=== PATIENT | female | born 1975 | race Caucasian/White ===

== ENCOUNTER 2016-09-19 21:58 | Emergency (ER) | payer SELFPAY ==
--- NOTE | 2016-09-19 22:05 | PDOC ---
History of Present Illness - General History Source: Patient, Significant Other Exam Limitations: No Limitations - History of Present Illness Initial Comments: 09/19/16 22:57 The patient is a 41 year old, with significant past medical history, who presents today complaining of 1 day of suprapubic pain. The patient states that the pain began this morning and is sharp, non-radiating, and intermittent. She reports taking 3 ibuprofen this morning with mild relief. Her LMP was 08/22/16. Denies vaginal discharge/bleeding. Denies fever, chills, nausea, vomiting, constipation, diarrhea. Allergies: none reported Surgical Hx: <Ava Sandhu - Last Filed: 09/19/16 22:57> <Armani Stearns - Last Filed: 09/20/16 00:46> - General Chief Complaint: Vaginal Sxs Stated Complaint: ABD PAIN Time Seen by Provider: 09/19/16 22:04 Past History <Ava Sandhu - Last Filed: 09/19/16 22:57> - Past Medical History Asthma: No Cancer: No Cardiac Disorders: No Diabetes: No HTN: No Seizures: No Thyroid Disease: No - Immunization History Immunization Up to Date: Yes - Psycho/Social/Smoking Cessation Hx Anxiety: No Suicidal Ideation: No Smoking History: Never smoked Hx Alcohol Use: No Drug/Substance Use Hx: No Substance Use Type: None Hx Substance Use Treatment: No <Armani Stearns - Last Filed: 09/20/16 00:46> - Past Medical History Allergies/Adverse Reactions: Allergies Allergy/AdvReac Type Severity Reaction Status Date / Time No Known Allergies Allergy Verified 09/19/16 22:22 Review of Systems - Review of Systems Able to Perform ROS?: Yes Comments:: 09/19/16 22:57 CONSTITUTIONAL: No fever, no chills, no fatigue EYES: No visual changes ENT: No ear pain, no sore throat CARDIOVASCULAR: No chest pain, no palpitations RESPIRATORY: No cough, no SOB GI: +suprapubic pain. No nausea, no vomiting, no constipation, no diarrhea GENITOURINARY: No dysuria, no frequency, no hematuria MUSKULOSKELETAL: No backpain, no joint pain, no myalgias SKIN: No rash NEURO: No headache <Ava Sandhu - Last Filed: 09/19/16 22:57> *Physical Exam - Vital Signs Last Vital Signs Temp Pulse Resp BP Pulse Ox 97.7 F 76 14 126/67 99 09/19/16 22:22 09/19/16 22:22 09/19/16 22:22 09/19/16 22:22 09/19/16 22:22 - Physical Exam Comments: 09/19/16 22:58 CONSTITUTIONAL: Well-appearing; well-nourished; in no apparent distress HEAD: Normocephalic; atraumatic EYES: PERRL; EOM intact ENMT: External appears normal; normal oropharynx NECK: Supple; non-tender; no cervical lymphadenopathy CARD: Normal S1, S2; no murmurs, rubs, or gallops RESP: Normal chest excursion with respiration; breath sounds clear and equal bilaterally; no wheezes, rhonchi, or rales ABD: Mild to moderate suprapubic tenderness. Soft, non-distended; no palpable organomegaly, no palpable hernias EXT: Normal ROM in all four extremities; non-tender to palpation; distal pulses intact SKIN: Warm, dry, no rash NEURO: No focal neurological deficiencies. <Ava Sandhu - Last Filed: 09/19/16 22:57> ED Treatment Course - LABORATORY CBC & Chemistry Diagram: 09/19/16 22:46 09/19/16 22:46 <Armani Stearns - Last Filed: 09/20/16 00:46> Medical Decision Making - Medical Decision Making 09/20/16 00:13 Patient is a 41-year-old female who presents with atraumatic suprapubic abdominal pain that started earlier in the day that is not effectively controlled by by mouth ibuprofen taken earlier. In the ER, patient is awake and alert, with mild to moderate suprapubic abdominal discomfort on initial evaluation, with no tenderness at the McBurney's point and a negative Burger's sign. Patient is UCG negative. CBC/CMP/UA within normal limit. Patient had received IV fluids and IV Toradol with significant improvement in level of her discomfort. Patient tolerated by mouth. On repeat exam, patient complains of minimal suprapubic discomfort only. I do not suspect appendicitis noted I suspect acute cholecystitis at this time. There is no evidence of colitis. Will discharge with PMD follow-up. <Armani Stearns - Last Filed: 09/20/16 00:46> *DC/Admit/Observation/Transfer - Attestations Scribe Attestion: 09/19/16 22:58 Documentation prepared by JULY Ricardo, acting as medical genetics director for Armani Stearns MD. <Ava Sandhu - Last Filed: 09/19/16 22:57> - Attestations Physician Attestion: 09/20/16 00:13 The documentation was prepared by the scribe under my direct supervision. I have reviewed the documentation which correctly represents the findings, medical decision-making and critical action taken by me. <Armani Stearns - Last Filed: 09/20/16 00:46> Diagnosis at time of Disposition: Abdominal pain Qualifiers: Abdominal location: lower abdomen, unspecified Qualified Code(s): R10.30 - Lower abdominal pain, unspecified - Discharge Dispostion Disposition: HOME Condition at time of disposition: Stable - Referrals Referrals: wildlife manager, as needed [Other] - Patient Instructions Printed Discharge Instructions: DI for Abdominal Pain-Adult Additional Instructions: Return immediately if you pain localizes to the right lower side, you developed fever, physicians assistant vomiting.
[2016-09-19 22:29] VITALS: BP 126/67; PULSE 76; TEMP 97.7; BMI 25.6
[2016-09-19] MEDS ORDERED: SODIUM CHLORIDE 1,000 ML IV STA (22:57)
[2016-09-19] MEDS ORDERED: KETOROLAC TROMETHAMINE 30 MG/1 ML VIAL IVPUSH ONE (22:57)
[2016-09-19] MEDS ORDERED: KETOROLAC TROMETHAMINE 30 MG/1 ML VIAL ONE (22:59)
[2016-09-19 23:11] LABS: BASOPHIL 0.3 % (0-2.0); MCH 26.6 pg (25.7-33.7); MCHC 32.9 g/dl (32.0-36.0); MEAN CELL VOLUME 80.9 fl (80-96); MEAN PLT VOLUME 9.8 fl (7.5-11.1); NEUTROPHILS 88.9 % (42.8-82.8); PLATELET COUNT 189 K/MM3 (134-434); RDW 15.2 % (11.6-15.6); WHITE BLOOD COUNT 10.6 K/mm3 (4.0-10.0)
[2016-09-19 23:34] LABS: ALBUMIN 3.8 g/dl (3.4-5.0); ALK PHOS 96 U/L (45-117); ANION GAP 9 (8-16); BILIRUBIN,TOTAL 0.4 mg/dL (0.2-1.0); CALCIUM 8.5 mg/dL (8.5-10.1); CO2 26 mmol/L (21-32); CREATININE 0.6 mg/dL (0.55-1.02); GLUCOSE,RANDOM 119 mg/dL (74-106); SGOT/AST 13 U/L (15-37); SGPT/ALT 17 U/L (12-78); TOT PROT 7.5 g/dl (6.4-8.2)
[2016-09-19 23:46] LABS: URINE APPEARANCE CLEAR; URINE BILIRUBIN NEGATIVE (NEGATIVE); URINE BLOOD NEGATIVE (NEGATIVE); URINE COLOR COLORLESS; URINE GLUCOSE (UA) NEGATIVE (NEGATIVE); URINE KETONE 1+ (NEGATIVE); URINE LEUK ESTERASE NEGATIVE (NEGATIVE); URINE NITRITE NEGATIVE (NEGATIVE); URINE PROTEIN NEGATIVE (NEGATIVE); URINE UROBILINOGEN NEGATIVE E.U./dl (0.2-1.0)
[2016-09-20] MEDS ORDERED: traMADol HCL 50 MG TABLET PO ONE (01:37)
[2016-09-20] MEDS ORDERED: traMADol HCL 50 MG TABLET ONE (02:02)
== END 2016-09-20 02:00 | disposition home or self-care (01) ==
LOC: JER 21:58
PROC: 3E0333Z Introduction of Anti-inflammatory into Peripheral Vein, Percutaneous Approach (ICD-10-PCS; principal; 2016-09-19)
PROC: 3E0337Z Introduction of Electrolytic and Water Balance Substance into Peripheral Vein, Percutaneous Approach (ICD-10-PCS; 2016-09-19)
DX: R10.30 Lower abdominal pain, unspecified (principal)
CPT/HCPCS: 36415; 80053; 81003; 84703; 85025; 87086; 99283-25

== ENCOUNTER 2016-09-21 01:36 | Inpatient (IN) | payer OTHER ==
[2016-09-21] MEDS ORDERED: KETOROLAC TROMETHAMINE 30 MG/1 ML VIAL ONE (02:19)
[2016-09-21] MEDS ORDERED: SODIUM CHLORIDE 1,000 ML IV STA (02:23)
[2016-09-21] MEDS ORDERED: KETOROLAC TROMETHAMINE 30 MG/1 ML VIAL IVPUSH ONE (02:23)
--- NOTE | 2016-09-21 02:24 | PDOC ---
History of Present Illness - General History Source: Patient Exam Limitations: No Limitations - History of Present Illness Initial Comments: 09/21/16 02:30 The patient is a 41 year old female with no significant past medical history who presents to the ED with persistent suprapubic pain. Patient was seen in the ER yesterday for 1 day of suprapubic pain, where she was treated and discharged. She returns today for persistent and increasing suprapubic pain and sudden onset of associated nausea and nonbloody vomiting that began today. She denies fever, chills, diaphoresis, or diarrhea. She denies vaginal bleeding/ discharge. The patient denies cough, SOB, chest pain, and palpitations. The patient denies dysuria, hematuria, urgency, and frequency. Allergies: NKDA Social History: No alcohol, tobacco, or drug use reported. Past Surgical History: PCP: None reported <Brynn Montague - Last Filed: 09/21/16 04:10> <Man Fry - Last Filed: 09/21/16 04:27> - General Chief Complaint: Pain, Acute Stated Complaint: ABD PAIN Time Seen by Provider: 09/21/16 02:12 Past History <Brynn Montague - Last Filed: 09/21/16 04:10> - Past Medical History Asthma: No Cancer: No Cardiac Disorders: No Diabetes: No HTN: No Seizures: No Thyroid Disease: No Other medical history: denies - Immunization History Immunization Up to Date: Yes - Psycho/Social/Smoking Cessation Hx Anxiety: No Suicidal Ideation: No Smoking History: Never smoked Have you smoked in the past 12 months: No Hx Alcohol Use: No Drug/Substance Use Hx: No Substance Use Type: None Hx Substance Use Treatment: No <Man Fyr - Last Filed: 09/21/16 04:27> - Past Medical History Allergies/Adverse Reactions: Allergies Allergy/AdvReac Type Severity Reaction Status Date / Time No Known Allergies Allergy Verified 09/21/16 01:46 Home Medications: Ambulatory Orders NK [No Known Home Medication] 09/21/16 Review of Systems - Review of Systems Able to Perform ROS?: Yes Comments:: 09/21/16 02:30 +suprapubic pain, nausea, vomiting Absent: fever, chills, diaphoresis, cough, SOB, chest pain, diarrhea, vaginal bleeding/discharge, dysuria, hematuria, urgency, and frequency. <Brynn Montague - Last Filed: 09/21/16 04:10> *Physical Exam - Vital Signs Last Vital Signs Temp Pulse Resp BP Pulse Ox 98 F 75 18 127/76 97 09/21/16 01:46 09/21/16 01:46 09/21/16 01:46 09/21/16 01:46 09/21/16 01:46 <Brynn Montague - Last Filed: 09/21/16 04:10> - Vital Signs Last Vital Signs Temp Pulse Resp BP Pulse Ox 98 F 75 18 127/76 97 09/21/16 01:46 09/21/16 01:46 09/21/16 01:46 09/21/16 01:46 09/21/16 01:46 - Physical Exam General Appearance: Yes: Nourished, Appropriately Dressed, Mild Distress HEENT: positive: Normal ENT Inspection Respiratory/Chest: positive: Lungs Clear, Normal Breath Sounds. negative: Chest Tender, Respiratory Distress Cardiovascular: positive: Regular Rhythm, Regular Rate Gastrointestinal/Abdominal: positive: Normal Bowel Sounds, Tender (SUPRAPUBIC AREA. NO MASSES BUT NO DEEP TENDERNESS. ERYTHEMA MID LINE LIKELY 2/2 HOT COMPRESSESS USED BY PT. ), Soft Integumentary: positive: Normal Color, Erythema (SUPRAPUBIC) Neurologic: positive: Fully Oriented, Alert, Normal Mood/Affect, Normal Response , Motor Strength 5/5 <Man Fry - Last Filed: 09/21/16 04:27> ED Treatment Course - LABORATORY CBC & Chemistry Diagram: 09/21/16 02:26 09/21/16 02:26 - RADIOLOGY Radiograph Interpretation: 09/21/16 04:11 EXAM: CT abdomen and pelvis without contrast Reviewed by Imaging environmental field team member: FINDINGS: Lung bases are clear. The visualized cardiac chambers are normal size and configuration. Normal unenhanced liver, gallbladder, pancreas, spleen, adrenal glands and kidneys. There is a high- grade small bowel obstruction with small bowel dilated to 5 mm just proximal to any pelvic anastomosis which appears to represent the transition point and from anastomotic stricture. No abscess or free air. A rectal anastomosis is also noted.. There is no aortic aneurysm. There is no significant retroperitoneal lymphadenopathy. The appendix is normal. The uterus and adnexal structures are normal. Urinary bladder is unremarkable. There is no pelvic free fluid. No discrete pelvic lymphadenopathy is identified. IMPRESSION: High-grade small bowel obstruction with mid pelvic transition point secondary to anastomotic stricture, without abscess or free air. - Medications Given in the ED: ED Medications Discontinued Medications Generic Name Dose Route Start Last Admin Trade Name Freq PRN Reason Stop Dose Admin Ketorolac Tromethamine 30 mg 09/21/16 02:23 09/21/16 02:28 Toradol Injection - IVPUSH 09/21/16 02:24 30 mg ONCE ONE Administration <Brynn Montague - Last Filed: 09/21/16 04:10> - LABORATORY CBC & Chemistry Diagram: 09/21/16 02:26 09/21/16 02:26 <Man Fry - Last Filed: 09/21/16 04:27> Progress Note - Progress Note Progress Note: RETUNRNING W/ SUPRAPUBIC ABD PAIN SUGGESTIVE OF ABD WALL PAIN (HERNIA?) CT ABD <Man Fry - Last Filed: 09/21/16 04:27> *DC/Admit/Observation/Transfer - Attestations Scribe Attestion: 09/21/16 02:30 Documentation prepared by Brynn Montague, acting as medical lead for Man Fry MD <Brynn Montague - Last Filed: 09/21/16 04:10> - Discharge Dispostion Admit: Yes <Man Fry - Last Filed: 09/21/16 04:27> Diagnosis at time of Disposition: Small bowel obstruction - Discharge Dispostion Condition at time of disposition: Stable
[2016-09-21 02:37] LABS: BASOPHIL 0.3 % (0-2.0); EOSINOPHIL 0.2 % (0-4.5); MCH 26.4 pg (25.7-33.7); MCHC 32.6 g/dl (32.0-36.0); MEAN PLT VOLUME 9.9 fl (7.5-11.1); NEUTROPHILS 81.7 % (42.8-82.8); PLATELET COUNT 211 K/MM3 (134-434); RDW 15.4 % (11.6-15.6); WHITE BLOOD COUNT 13.1 K/mm3 (4.0-10.0)
[2016-09-21 02:57] LABS: CALCIUM 8.8 mg/dL (8.5-10.1); CREATININE 0.7 mg/dL (0.55-1.02)
[2016-09-21] MEDS ORDERED: morphine CARPU-JECT 2 MG/1 ML DISP.SYRIN ONE (04:28)
[2016-09-21] MEDS ORDERED: morphine CARPU-JECT 2 MG/1 ML DISP.SYRIN IVPUSH ONE (04:39)
[2016-09-21] MEDS ORDERED: ONDANSETRON 4 MG/2 ML VIAL IVPB PRN (05:25)
[2016-09-21] MEDS ORDERED: morphine CARPU-JECT 2 MG/1 ML DISP.SYRIN IVPUSH PRN (05:25)
--- NOTE | 2016-09-21 05:41 | HP ---
Addendum entered and electronically signed by Christy Adams PA 09/21/16 07: 08: Surgical history clarfied. Pt. had a benign ovarian cystectomy, not an oopherectomy Original Note: CHIEF COMPLAINT: Vomiting/abdominal pain PCP: None HISTORY OF PRESENT ILLNESS: Pt. is a 41 y/o female with no significant PMH who presented to the ED with nausea, vomiting, and abdominal pain. Pt. states that her symptoms began two days ago. She states that she vomited five times over the past two days. She points to her umbilicus when asked where the pain is. Nothing makes her pain better or worse. Her symptoms progressively got worse over the past two days so she came to the ED for evaluation. ER course was notable for: (1) SBO noted on CT (2) NG tube placement (3) WBC of 13.1, afebrile Recent Travel: Denies PAST MEDICAL HISTORY: None PAST SURGICAL HISTORY: Oopherectomy Social History: Smoking: Former smoker. 3-4 cigarettes/week x 4years. Alcohol: Denies Drugs: Denies Family History: Mother: Alive, HTN Father: Alive, HTN Brother 1: Alive, cholecystectomy Brother 2: Alive, cholecystectomy Allergies No Known Allergies Allergy (Verified 09/21/16 01:46) HOME MEDICATIONS: 3 Medication Instructions Recorded NK [No Known Home Medication] 09/21/16 REVIEW OF SYSTEMS CONSTITUTIONAL: Absent: fever, chills, diaphoresis, generalized weakness, malaise, loss of appetite, weight change HEENT: Absent: rhinorrhea, nasal congestion, throat pain, throat swelling, difficulty swallowing, mouth swelling, ear pain, eye pain, visual changes CARDIOVASCULAR: Absent: chest pain, syncope, palpitations, irregular heart rate, lightheadedness , peripheral edema RESPIRATORY: Absent: cough, shortness of breath, dyspnea with exertion, orthopnea, wheezing, stridor, hemoptysis GASTROINTESTINAL: Present: Abdominal pain, nausea, vomiting. Absent: abdominal pain, abdominal distension, nausea, vomiting, diarrhea, constipation, melena, hematochezia GENITOURINARY: Absent: dysuria, frequency, urgency, hesitancy, hematuria, flank pain, genital pain MUSCULOSKELETAL: Absent: myalgia, arthralgia, joint swelling, back pain, neck pain SKIN: Absent: rash, itching, pallor HEMATOLOGIC/IMMUNOLOGIC: Absent: easy bleeding, easy bruising, lymphadenopathy, frequent infections ENDOCRINE: Absent: unexplained weight gain, unexplained weight loss, heat intolerance, cold intolerance NEUROLOGIC: Absent: headache, focal weakness or paresthesias, dizziness, unsteady gait, seizure, mental status changes, bladder or bowel incontinence PSYCHIATRIC: Absent: anxiety, depression, suicidal or homicidal ideation, hallucinations. PHYSICAL EXAMINATION Vital Signs - 24 hr 3 09/21/16 09/21/16 01:46 04:46 Temperature 98 F Pulse Rate 75 Pulse Rate [ 76 Left] Respiratory 18 18 Rate Blood Pressure 127/76 Blood Pressure 120/59 [Right Arm] O2 Sat by Pulse 97 100 Oximetry (%) GENERAL: Awake, alert, and fully oriented to person, place and time, in mild distress. HEAD: Normal with no signs of trauma. EYES: Pupils equal, round and reactive to light, extraocular movements intact, sclera anicteric, conjunctiva clear. No lid lag. EARS, NOSE, THROAT: Ears normal, nares patent, oropharynx clear without exudates. Moist mucous membranes. NECK: Normal range of motion, supple without lymphadenopathy, JVD, or masses. LUNGS: Breath sounds equal, clear to auscultation bilaterally. No wheezes, and no crackles. No accessory muscle use. HEART: Regular rate and rhythm, normal S1 and S2 without murmur, rub or gallop. ABDOMEN: TTP over the umbilical and suprapubic region. Soft, not distended, hyper tympanic bowel sounds, no guarding, no rebound, no masses. No hepatomegaly or splenomegaly. MUSCULOSKELETAL: Normal range of motion at all joints. No bony deformities or tenderness. No CVA tenderness. UPPER EXTREMITIES: 2+ pulses, warm, well-perfused. No cyanosis. No clubbing. No peripheral edema. LOWER EXTREMITIES: 2+ pulses, warm, well-perfused. No calf tenderness. No peripheral edema. NEUROLOGICAL: Cranial nerves II-XII intact. Normal speech. Normal gait. PSYCHIATRIC: Cooperative. Good eye contact. Appropriate mood and affect. SKIN: Warm, dry, normal turgor, no rashes or lesions noted, normal capillary refill. Laboratory Results - last 24 hr 3 09/21/16 09/21/16 02:26 02:26 WBC 13.1 H RBC 4.61 Hgb 12.2 Hct 37.4 MCV 81.0 MCHC 32.6 RDW 15.4 Plt Count 211 MPV 9.9 Neutrophils % 81.7 Lymphocytes % 11.9 D Monocytes % 5.9 D Eosinophils % 0.2 D Basophils % 0.3 Sodium 141 Potassium 3.7 Chloride 103 Carbon Dioxide 25 Anion Gap 13 BUN 8 D Creatinine 0.7 Random Glucose 104 Calcium 8.8 Imaging: CT Scan: Lung bases are clear. The visualized cardiac chambers are normal size and configuration. Normal unenhanced liver, gallbladder, pancreas, spleen, adrenal glands and kidneys. There is a high-grade small bowel obstruction with small bowel dilated to 5 mm just proximal to any pelvic anastomosis which appears to represent the transition point and from anastomotic stricture. No abscess or free air. A rectal anastomosis is also noted.. There is no aortic aneurysm. There is no significant retroperitoneal lymphadenopathy. The appendix is normal. The uterus and adnexal structures are normal. Urinary bladder is unremarkable. There is no pelvic free fluid. No discrete pelvic lymphadenopathy is identified. IMPRESSION: High-grade small bowel obstruction with mid pelvic transition point secondary to anastomotic stricture, without abscess or free air. ASSESSMENT/PLAN: Pt. is a 41 y/o female with no PMH who is admitted for a SBO. Problem List - Problem (1) SBO (small bowel obstruction) Assessment/Plan: - NPO. - Maintain NG tube placement with intermittent low wall suction - Received call from [facility] [employer]. NG tube just above the GE junction. Advanced 5cm - Leukocytosis; most likely reactive. Observe off antibiotics unless pt. becomes febrile. - CT scan shows surgical clips on the intestine; however, pt does not report previous bowel surgery. - Surgery Consult in the morning. - GI prophylaxis, protonix 40mg IV daily Code(s): K56.69 - OTHER INTESTINAL OBSTRUCTION (2) DVT prophylaxis Assessment/Plan: Moderate Risk; Heparin 5,000 TID Code(s): [id number] - Visit type - Emergency Visit Emergency Visit: Yes ED Registration Date: 09/21/16 Care time: The patient presented to the Emergency Department on the above date and was hospitalized for further evaluation of their emergent condition. - New Patient This patient is new to me today: Yes Date on this admission: 09/21/16 - Critical Care Critical Care patient: No
[2016-09-21] MEDS: HEPARIN NA (PORCINE) 5,000 UNITS/ML 1ML VIAL SQ SCH ×3 (06:36→23:33)
[2016-09-21 08:07] LABS: BASOPHIL 0.2 % (0-2.0); EOSINOPHIL 0.6 % (0-4.5); MCH 26.8 pg (25.7-33.7); MEAN PLT VOLUME 9.6 fl (7.5-11.1); PLATELET COUNT 188 K/MM3 (134-434); RDW 15.7 % (11.6-15.6); WHITE BLOOD COUNT 10.8 K/mm3 (4.0-10.0)
[2016-09-21 09:15] LABS: ALBUMIN 3.3 g/dl (3.4-5.0); ALK PHOS 72 U/L (45-117); ANION GAP 8 (8-16); BILIRUBIN,TOTAL 0.4 mg/dL (0.2-1.0); CO2 24 mmol/L (21-32); CREATININE 0.6 mg/dL (0.55-1.02); GLUCOSE,RANDOM 86 mg/dL (74-106); MAGNESIUM 2.1 mg/dL (1.8-2.4); PHOSPHOROUS 2.8 mg/dL (2.5-4.9); SGOT/AST 9 U/L (15-37); SGPT/ALT 14 U/L (12-78); TOT PROT 6.3 g/dl (6.4-8.2)
[2016-09-21] MEDS ORDERED: morphine CARPU-JECT 2 MG/1 ML DISP.SYRIN IVPB ONE (09:30)
[2016-09-21] MEDS: PANTOPRAZOLE SODIUM 100 ML IVPB SCH (09:37)
[2016-09-21 11:15] VITALS: BMI 28.8
[2016-09-21] MEDS ORDERED: LORAZEPAM CARPU-JECT 2 MG/ML DISP.SYRIN IVPB ONE (12:18)
--- NOTE | 2016-09-21 12:26 | PN ---
Physical Exam: SUBJECTIVE: Patient seen and examined. Patient was verbalizing pain on her lower abdomen. States pain is not relieved with current morphine dose. Also very anxious on exam. Denies chest pain, shortness of breath. OBJECTIVE: Anxious, abdominal pain not relieved NGT with minimal output Will give one time dose of ativan 0.5mg x 1 and increase morphine to 4mg q4 and monitor She does have + bowel sounds Vital Signs Period Temp Pulse Resp BP Sys/Gomez Pulse Ox Last 24 Hr 98.4 F-99.3 F 66-76 16-20 117-127/59-65 100 GENERAL: The patient is awake, alert, and fully oriented, expressing abdominal pain, anxious HEAD: Normal with no signs of trauma. EYES: PERRL, extraocular movements intact, sclera anicteric, conjunctiva clear. No ptosis. ENT: Ears normal, nares patent, oropharynx clear without exudates, moist mucous membranes. NECK: Trachea midline, full range of motion, supple. LUNGS: Breath sounds equal, clear to auscultation bilaterally, no wheezes, no crackles, no accessory muscle use. HEART: Regular rate and rhythm, S1, S2 without murmur, rub or gallop. ABDOMEN: +pain on light palpation of suprapubic region, mildly distended abdomen , + bowel sounds EXTREMITIES: 2+ pulses, warm, well-perfused, no edema. NEUROLOGICAL: Normal speech, gait not observed. PSYCH: Normal mood, normal affect. SKIN: Warm, dry, normal turgor, no rashes or lesions noted Laboratory Results - last 24 hr 09/21/16 09/21/16 07:30 07:30 WBC 10.8 H RBC 4.08 Hgb 10.9 D Hct 33.1 MCV 81.0 MCHC 33.0 RDW 15.7 H Plt Count 188 MPV 9.6 Neutrophils % 68.0 Lymphocytes % 22.5 D Monocytes % 8.7 Eosinophils % 0.6 D Basophils % 0.2 Sodium 141 Potassium 3.6 Chloride 109 H Carbon Dioxide 24 Anion Gap 8 BUN 8 Creatinine 0.6 Creat Clearance w eGFR > 60 Random Glucose 86 Calcium 8.0 L Phosphorus 2.8 Magnesium 2.1 Total Bilirubin 0.4 AST 9 L D ALT 14 Alkaline Phosphatase 72 D Total Protein 6.3 L Albumin 3.3 L Active Medications Generic Name Dose Route Start Last Admin Trade Name Freq PRN Reason Stop Dose Admin Heparin Sodium (Porcine) 5,000 unit 09/21/16 06:00 09/21/16 06:36 Heparin - SQ 5,000 unit TID MALCOLM Administration Pantoprazole Sodium 100 mls @ 200 mls/hr 09/21/16 10:00 09/21/16 09:37 Protonix 40mg Ivpb (Pre-Docked) IVPB 200 mls/hr DAILY MALCOLM Administration Dextrose/Sodium Chloride 1,000 mls @ 100 mls/hr 09/21/16 12:00 D5-Ns - IV ASDIR MALCOLM Lidocaine HCl 15 ml 09/21/16 05:22 Xylocaine 2% Viscous Oral - MM Q6HPO PRN PAIN Lorazepam 0.5 mg 09/21/16 12:18 Ativan Injection - IVPB 09/21/16 12:19 ONCE ONE Morphine Sulfate 4 mg 09/21/16 12:15 Morphine Injection - IVPB Q3H PRN PAIN Ondansetron HCl 4 mg 09/21/16 05:25 Zofran Injection IVPB Q6H PRN NAUSEA ASSESSMENT/PLAN: Patient is a 41 year old female with a past medical history of c section, benign ovarian cystectomy and small bowel perforation during with extensive small bowel adhesions between the anterior abdominal wall and the uterus. She is noted on the cat scan to have surgical clippings. She presented to the ED on 09/21/2016 with complaints of nausea, vomiting and abdominal pain. States her symptoms began 2 days prior and that she has had multiple episodes of vomiting over last few days. She states her pain is below her umbilicus on both lower quadrants. On admission an SBO was noted on abdomen/pelvis CT and an NGT was placed to low intermittent suction. Her WBC were 13.1 on admission. GI: Small Bowel Obstruction - acute Assessment/Plan: NPO with NGT with minimal output Her abdomen is mildly distended but does have + bowel sounds Abdominal/Pelvis CT 09/21/2016 - high grade partial SBO in RLQ @ site of SB anastomosis there are surgical clips on the intestines Surgery consulted On Protonix 40mg daily Morphine for pain Zofran for nausea IVF of D5 NS @100 while NPO Leukocytosis - acute / improving Assessment/Plan: trend for now monitor F.E.N. Fluids: D5 NS @ 100cc/hr Electrolytes: within normal limits Nutrition: NPO, has NGT low intermittent suction Prophylaxis: GI: protonix daily DVT: Heparin TID Visit type - Emergency Visit Emergency Visit: Yes ED Registration Date: 09/21/16 Care time: The patient presented to the Emergency Department on the above date and was hospitalized for further evaluation of their emergent condition. - New Patient This patient is new to me today: Yes Date on this admission: 09/21/16 - Critical Care Critical Care patient: No - Discharge Referral Referred to [facility] No
[2016-09-21] MEDS: morphine CARPU-JECT 4 MG/1 ML DISP.SYRIN IVPB PRN ×4 (12:30→23:55)
[2016-09-21] MEDS: DEXTROSE 5%-NORMAL SALINE 1,000 ML IV SCH (12:57)
[2016-09-21] MEDS ORDERED: LORAZEPAM CARPU-JECT 2 MG/ML DISP.SYRIN IVPUSH PRN (15:00)
--- NOTE | 2016-09-21 15:37 | CONSULT ---
Consult Consult Specialty:: Surgery Referred by:: Damaris Trejo Reason for Consultation:: Abdominal pain, intestinal obstruction. - History of Present Illness History of Present Illness: C/O abdominal pain for the last 2 days, with vomiting. She came to the Er yesterday as pain was not relieved. Her last bowel movement was yesterday. She feels better after admission. 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 History of Recent Travel: No Home Medications - Allergies Allergies/Adverse Reactions: Allergies Allergy/AdvReac Type Severity Reaction Status Date / Time No Known Allergies Allergy Verified 09/21/16 01:46 - Home Medications Home Medications: Ambulatory Orders NK [No Known Home Medication] 09/21/16 Family Disease History - Family Disease History Family Disease History: Heart Disease: Father Physical Exam Vital Signs: Vital Signs Temperature 99.5 F 09/21/16 14:14 Pulse Rate 67 09/21/16 14:14 Respiratory Rate 16 09/21/16 14:14 Blood Pressure 128/73 09/21/16 14:14 O2 Sat by Pulse Oximetry (%) 100 09/21/16 04:46 Gastrointestinal: Yes: Soft (Mildly tender in right lower quadrant of abdomen. No incisional hernia.) Labs: CBC, BMP 09/21/16 07:30 09/21/16 07:30 Imaging - Results X-ray: Report Reviewed (Distal intestinal obstruction.), Image Reviewed Cat Scan: Report Reviewed, Image Reviewed Problem List - Problems (1) Abdominal pain Code(s): R10.9 - UNSPECIFIED ABDOMINAL PAIN Qualifiers: Abdominal location: lower abdomen, unspecified Qualified Code(s): R10.30 - Lower abdominal pain, unspecified (2) Intestinal obstruction due to adhesions Code(s): K56.5 - INTESTINAL ADHESIONS W OBST (POSTPROCEDURAL) (POSTINFECTION) Assessment/Plan Hydration , IV fluids, Nasogastric aspiration , Monitor abdominal pain , WBC , abdominal findings, Surgery if not relieved with nasogastric aspiration, and IV fluids.
[2016-09-22] MEDS: DEXTROSE 5%-NORMAL SALINE 1,000 ML IV SCH (03:10)
[2016-09-22] MEDS: morphine CARPU-JECT 4 MG/1 ML DISP.SYRIN IVPB PRN ×2 (06:25→18:51)
[2016-09-22] MEDS: HEPARIN NA (PORCINE) 5,000 UNITS/ML 1ML VIAL SQ SCH ×3 (06:26→21:52)
[2016-09-22 07:27] LABS: BASOPHIL 0.2 % (0-2.0); EOSINOPHIL 0.3 % (0-4.5); MCH 26.6 pg (25.7-33.7); MCHC 32.4 g/dl (32.0-36.0); MEAN CELL VOLUME 82.2 fl (80-96); MEAN PLT VOLUME 9.6 fl (7.5-11.1); PLATELET COUNT 181 K/MM3 (134-434); RDW 15.4 % (11.6-15.6); WHITE BLOOD COUNT 5.2 K/mm3 (4.0-10.0)
[2016-09-22 08:32] LABS: ALK PHOS 69 U/L (45-117); AMYLASE 38 U/L (25-115); ANION GAP 11 (8-16); BILIRUBIN,TOTAL 0.8 mg/dL (0.2-1.0); CALCIUM 7.6 mg/dL (8.5-10.1); CO2 22 mmol/L (21-32); CREATININE 0.6 mg/dL (0.55-1.02); GLUCOSE,RANDOM 112 mg/dL (74-106); SGOT/AST 9 U/L (15-37); SGPT/ALT 12 U/L (12-78)
[2016-09-22] MEDS ORDERED: KCL 10 MEQ IVPB 100 ML IVPB SCH (09:00)
[2016-09-22] MEDS: PANTOPRAZOLE SODIUM 100 ML IVPB SCH (10:14)
--- NOTE | 2016-09-22 10:29 | PN ---
Physical Exam: SUBJECTIVE: Patient seen and examined. States she feels better, less abdominal pain. denies any chest pain, denies nausea. OBJECTIVE: Was able to ausculate/palpate her abdomen without her expressing pain. Abdomen appears less distended + bowel sounds Overnight, required a few doses of morphine, but overall pain improving less anxious Vital Signs Period Temp Pulse Resp BP Sys/Gomez Pulse Ox Last 24 Hr 97.7 F-99.5 F 67-78 15-20 121-133/63-75 95 GENERAL: The patient is awake, alert, and fully oriented, expressing less abdominal pain HEAD: Normal with no signs of trauma. EYES: PERRL, extraocular movements intact, sclera anicteric, conjunctiva clear. No ptosis. ENT: Ears normal, nares patent, oropharynx clear without exudates, moist mucous membranes. NECK: Trachea midline, full range of motion, supple. HEART: Regular rate and rhythm ABDOMEN: pain improving, less distended, able to tolerate light palpation of abdomen today + bowel sounds EXTREMITIES: 2+ pulses, warm, well-perfused, no edema. NEUROLOGICAL: Normal speech, gait not observed. PSYCH: Normal mood, normal affect. SKIN: Warm, dry, normal turgor, no rashes or lesions noted Laboratory Results - last 24 hr 09/22/16 09/22/16 06:10 06:10 WBC 5.2 D RBC 4.15 Hgb 11.0 Hct 34.1 MCV 82.2 MCHC 32.4 RDW 15.4 Plt Count 181 MPV 9.6 Neutrophils % 68.0 Lymphocytes % 19.3 Monocytes % 12.2 H Eosinophils % 0.3 Basophils % 0.2 Sodium 143 Potassium 3.2 L Chloride 110 H Carbon Dioxide 22 Anion Gap 11 BUN 9 Creatinine 0.6 Creat Clearance w eGFR > 60 Random Glucose 112 H D Calcium 7.6 L Total Bilirubin 0.8 D AST 9 L ALT 12 Alkaline Phosphatase 69 Total Protein 6.0 L Albumin 3.0 L Total Amylase 38 Lipase 93 Active Medications Generic Name Dose Route Start Last Admin Trade Name Freq PRN Reason Stop Dose Admin Heparin Sodium (Porcine) 5,000 unit 09/21/16 06:00 09/22/16 06:26 Heparin - SQ 5,000 unit TID [facility]COLM Administration Pantoprazole Sodium 100 mls @ 200 mls/hr 09/21/16 10:00 09/21/16 09:37 Protonix 40mg Ivpb (Pre-Docked) IVPB 200 mls/hr DAILY [facility] Administration Sodium Chloride 1,000 mls @ 100 mls/hr 09/22/16 09:00 Normal Saline - IV ASDIR [facility]COLM Potassium Chloride 100 mls @ 100 mls/hr 09/22/16 09:00 Potassium Chloride 10 Meq Premix Ivpb - IVPB 09/22/16 10:59 Q60M MALCOLM Lidocaine HCl 15 ml 09/21/16 05:22 Xylocaine 2% Viscous Oral - MM Q6HPO PRN PAIN Lorazepam 0.5 mg 09/21/16 15:00 09/21/16 18:55 Ativan Injection - IVPUSH 0.5 mg Q6H PRN Administration ANXIETY Morphine Sulfate 4 mg 09/21/16 12:15 09/22/16 06:25 Morphine Injection - IVPB 4 mg Q3H PRN Administration PAIN Ondansetron HCl 4 mg 09/21/16 05:25 Zofran Injection IVPB Q6H PRN NAUSEA ASSESSMENT/PLAN: Patient is a 41 year old female with a past medical history of c section, benign ovarian cystectomy and small bowel perforation during with extensive small bowel adhesions between the anterior abdominal wall and the uterus. She is noted on the cat scan to have surgical clippings. She presented to the ED on 09/21/2016 with complaints of nausea, vomiting and abdominal pain. States her symptoms began 2 days prior and that she has had multiple episodes of vomiting over last few days. She states her pain is below her umbilicus on both lower quadrants. On admission an SBO was noted on abdomen/pelvis CT and an NGT was placed to low intermittent suction. Her WBC were 13.1 on admission. On today's exam, was able to palpate/auscultate her abdomen without patient expressing severe pain. GI: Small Bowel Obstruction - acute Assessment/Plan: NPO with NGT with apx 800+cc output of bilious drainage Her abdomen is less distended, + bowel sounds Abdominal/Pelvis CT 09/21/2016 - high grade partial SBO in RLQ @ site of SB anastomosis there are surgical clips on the intestines Surgery following On Protonix 40mg daily, Morphine for pain Zofran for nausea Ativan for anxiety IVF changed to NS @100cc/hr. Leukocytosis - resolved Assessment/Plan: continue to trend for now F.E.N. Fluids: NS @100cc/hr Electrolytes: hypokalemia repleted with 2 runs of K riders Corrected calcium 8.7 Nutrition: NPO, has NGT low intermittent suction + bili drainage Diet as per surgery Prophylaxis: GI: protonix daily DVT: Heparin TID Visit type - Emergency Visit Emergency Visit: Yes ED Registration Date: 09/21/16 Care time: The patient presented to the Emergency Department on the above date and was hospitalized for further evaluation of their emergent condition. - New Patient This patient is new to me today: No - Critical Care Critical Care patient: No - Discharge Referral Referred to [facility] Med P.C.: No
[2016-09-22] MEDS: SODIUM CHLORIDE 1,000 ML IV SCH (10:34)
[2016-09-22] MEDS: KCL 10 MEQ IVPB 100 ML IVPB SCH ×2 (10:34→11:34)
--- NOTE | 2016-09-22 15:17 | PN ---
Progress Note, Physician - Current Medication List Current Medications: Active Medications Heparin Sodium (Porcine) (Heparin -) 5,000 unit SQ TID [facility] Last Admin: 09/22/16 14:39 Dose: 5,000 unit Pantoprazole Sodium (Protonix 40mg Ivpb (Pre-Docked)) 100 mls @ 200 mls/hr IVPB DAILY [facility] Last Admin: 09/22/16 10:14 Dose: 200 mls/hr Sodium Chloride (Normal Saline -) 1,000 mls @ 100 mls/hr IV ASDIR [facility] Last Admin: 09/22/16 10:34 Dose: 100 mls/hr Lidocaine HCl (Xylocaine 2% Viscous Oral -) 15 ml MM Q6HPO PRN PRN Reason: PAIN Lorazepam (Ativan Injection -) 0.5 mg IVPUSH Q6H PRN PRN Reason: ANXIETY Last Admin: 09/21/16 18:55 Dose: 0.5 mg Morphine Sulfate (Morphine Injection -) 4 mg IVPB Q3H PRN PRN Reason: PAIN Last Admin: 09/22/16 06:25 Dose: 4 mg Ondansetron HCl (Zofran Injection) 4 mg IVPB Q6H PRN PRN Reason: NAUSEA - Objective Vital Signs: Vital Signs Temperature 97.3 F L 09/22/16 10:00 Pulse Rate 68 09/22/16 10:00 Respiratory Rate 20 09/22/16 10:00 Blood Pressure 118/73 09/22/16 10:00 O2 Sat by Pulse Oximetry (%) 95 09/21/16 21:00 Labs: CBC, BMP 09/22/16 06:10 09/22/16 06:10 Problem List - Problems (1) Abdominal pain Code(s): R10.9 - UNSPECIFIED ABDOMINAL PAIN Qualifiers: Abdominal location: lower abdomen, unspecified Qualified Code(s): R10.30 - Lower abdominal pain, unspecified (2) Intestinal obstruction due to adhesions Code(s): K56.5 - INTESTINAL ADHESIONS W OBST (POSTPROCEDURAL) (POSTINFECTION) Assessment/Plan X-ray of the abdomen , appears improved. No air fluid levels. Air in the colon, NG aspiration 600 ml in 24 hours. WBC is normal. Still has some abdominal pain. Abdomen is soft , not tender. Repeat abdominal X-ray tomorrow. Mantain nasogastric aspiration.
[2016-09-23] MEDS: morphine CARPU-JECT 4 MG/1 ML DISP.SYRIN IVPB PRN ×2 (04:23→20:39)
[2016-09-23] MEDS: SODIUM CHLORIDE 1,000 ML IV SCH ×3 (04:29→23:18)
[2016-09-23] MEDS: HEPARIN NA (PORCINE) 5,000 UNITS/ML 1ML VIAL SQ SCH ×3 (06:22→22:07)
[2016-09-23 08:55] LABS: MCH 26.3 pg (25.7-33.7); MEAN CELL VOLUME 82.3 fl (80-96); MEAN PLT VOLUME 9.7 fl (7.5-11.1); PLATELET COUNT 191 K/MM3 (134-434); RDW 15.5 % (11.6-15.6); WHITE BLOOD COUNT 7.3 K/mm3 (4.0-10.0)
[2016-09-23 09:29] LABS: CALCIUM 7.7 mg/dL (8.5-10.1); CREATININE 0.6 mg/dL (0.55-1.02)
[2016-09-23] MEDS: PANTOPRAZOLE SODIUM 100 ML IVPB SCH (09:58)
[2016-09-23] MEDS: KCL 10 MEQ IVPB 100 ML IVPB SCH ×2 (10:14→11:42)
--- NOTE | 2016-09-23 10:38 | PN ---
Physical Exam: SUBJECTIVE: Patient seen and examined. States she feels better. Says she is passing gas and had a BM last night States her abdomen feels better, mild discomfort on deep palpation Wants to go home OBJECTIVE: + bowel sounds, + flatulus + had bm overnight Abdomen non distended Awaiting abdominal xray follow up Vital Signs Period Temp Pulse Resp BP Sys/Gomez Pulse Ox Last 24 Hr 97.9 F-99.7 F 64-70 20-20 105-129/57-76 97 GENERAL: The patient is awake, alert, and fully oriented, expressing less abdominal pain, some slight pain on deep palpation HEAD: Normal with no signs of trauma. EYES: PERRL, extraocular movements intact, sclera anicteric, conjunctiva clear. No ptosis. ENT: Ears normal, nares patent, oropharynx clear without exudates, moist mucous membranes. NECK: Trachea midline, full range of motion, supple. HEART: Regular rate and rhythm ABDOMEN: pain improving, less distended, able to tolerate light palpation of abdomen today + bowel sounds, + flatulus + had bm overnight EXTREMITIES: 2+ pulses, warm, well-perfused, no edema. NEUROLOGICAL: Normal speech, gait not observed. PSYCH: Normal mood, normal affect. SKIN: Warm, dry, normal turgor, no rashes or lesions noted Laboratory Results - last 24 hr 09/23/16 09/23/16 06:50 06:50 WBC 7.3 D RBC 4.13 Hgb 10.9 Hct 34.0 MCV 82.3 MCHC 32.0 RDW 15.5 Plt Count 191 MPV 9.7 Sodium 143 Potassium 3.2 L Chloride 110 H Carbon Dioxide 24 Anion Gap 9 BUN 8 Creatinine 0.6 Random Glucose 75 D Calcium 7.7 L Active Medications Generic Name Dose Route Start Last Admin Trade Name Freq PRN Reason Stop Dose Admin Heparin Sodium (Porcine) 5,000 unit 09/21/16 06:00 09/23/16 06:22 Heparin - SQ 5,000 unit TID MALCOLM Administration Pantoprazole Sodium 100 mls @ 200 mls/hr 09/21/16 10:00 09/23/16 09:58 Protonix 40mg Ivpb (Pre-Docked) IVPB 200 mls/hr DAILY [facility] Administration Sodium Chloride 1,000 mls @ 100 mls/hr 09/22/16 09:00 09/23/16 10:02 Normal Saline - IV Not Given ASDIR [facility]COLM Potassium Chloride 100 mls @ 100 mls/hr 09/23/16 09:45 09/23/16 10:14 Potassium Chloride 10 Meq Premix Ivpb - IVPB 09/23/16 11:44 100 mls/hr Q60M [facility]COLM Administration Lidocaine HCl 15 ml 09/21/16 05:22 Xylocaine 2% Viscous Oral - MM Q6HPO PRN PAIN Lorazepam 0.5 mg 09/21/16 15:00 09/21/16 18:55 Ativan Injection - IVPUSH 0.5 mg Q6H PRN Administration ANXIETY Morphine Sulfate 4 mg 09/21/16 12:15 09/23/16 04:23 Morphine Injection - IVPB 4 mg Q3H PRN Administration PAIN Ondansetron HCl 4 mg 09/21/16 05:25 Zofran Injection IVPB Q6H PRN NAUSEA ASSESSMENT/PLAN: Patient is a 41 year old female with a past medical history of c section, benign ovarian cystectomy and small bowel perforation during with extensive small bowel adhesions between the anterior abdominal wall and the uterus. She is noted on the cat scan to have surgical clippings. She presented to the ED on 09/21/2016 with complaints of nausea, vomiting and abdominal pain. States her symptoms began 2 days prior and that she has had multiple episodes of vomiting over last few days. She states her pain is below her umbilicus on both lower quadrants. On admission an SBO was noted on abdomen/pelvis CT and an NGT was placed to low intermittent suction. Her WBC were 13.1 on admission. On today's exam, was able to palpate/auscultate her abdomen without patient expressing pain. Imaging: Abdominal/Pelvis CT 09/21/2016 - high grade partial SBO in RLQ @ site of SB anastomosis there are surgical clips on the intestines GI: Small Bowel Obstruction - acute Assessment/Plan: NPO with NGT with apx 400+cc output of bilious drainage Her abdomen is less distended, + bowel sounds, passing gas Surgery following On Protonix 40mg daily, Morphine for pain, Zofran for nausea, Ativan for anxiety IVF changed to NS @100cc/hr, 3 K riders for hypokalemia - K 3.2 today Leukocytosis - resolved Assessment/Plan: continue to trend for now F.E.N. Fluids: NS @100cc/hr Electrolytes: hypokalemia repleted with 3 runs of K riders Corrected calcium 8.7 Nutrition: NPO, has NGT low intermittent suction + bili drainage Diet as per surgery Prophylaxis: GI: protonix daily DVT: Heparin TID Visit type - Emergency Visit Emergency Visit: Yes ED Registration Date: 09/21/16 Care time: The patient presented to the Emergency Department on the above date and was hospitalized for further evaluation of their emergent condition. - New Patient This patient is new to me today: No - Critical Care Critical Care patient: No - Discharge Referral Referred to [facility] Med P.C.: No
--- NOTE | 2016-09-23 18:34 | PN ---
Progress Note, Physician - Current Medication List Current Medications: Active Medications Heparin Sodium (Porcine) (Heparin -) 5,000 unit SQ TID [facility] Last Admin: 09/23/16 14:50 Dose: 5,000 unit Pantoprazole Sodium (Protonix 40mg Ivpb (Pre-Docked)) 100 mls @ 200 mls/hr IVPB DAILY [facility] Last Admin: 09/23/16 09:58 Dose: 200 mls/hr Sodium Chloride (Normal Saline -) 1,000 mls @ 100 mls/hr IV ASDIR [facility] Last Admin: 09/23/16 10:02 Dose: Not Given Lidocaine HCl (Xylocaine 2% Viscous Oral -) 15 ml MM Q6HPO PRN PRN Reason: PAIN Lorazepam (Ativan Injection -) 0.5 mg IVPUSH Q6H PRN PRN Reason: ANXIETY Last Admin: 09/21/16 18:55 Dose: 0.5 mg Morphine Sulfate (Morphine Injection -) 4 mg IVPB Q3H PRN PRN Reason: PAIN Last Admin: 09/23/16 04:23 Dose: 4 mg Ondansetron HCl (Zofran Injection) 4 mg IVPB Q6H PRN PRN Reason: NAUSEA - Objective Vital Signs: Vital Signs Temperature 98.5 F 09/23/16 18:00 Pulse Rate 67 09/23/16 18:00 Respiratory Rate 20 09/23/16 18:00 Blood Pressure 108/68 09/23/16 18:00 O2 Sat by Pulse Oximetry (%) 97 09/22/16 21:00 Labs: CBC, BMP 09/23/16 06:50 09/23/16 06:50 Problem List - Problems (1) Abdominal pain Code(s): R10.9 - UNSPECIFIED ABDOMINAL PAIN Qualifiers: Abdominal location: lower abdomen, unspecified Qualified Code(s): R10.30 - Lower abdominal pain, unspecified (2) Intestinal obstruction due to adhesions Code(s): K56.5 - INTESTINAL ADHESIONS W OBST (POSTPROCEDURAL) (POSTINFECTION) Assessment/Plan X-Ray of abdomen still shows signs of ?partial small bowel obstruction. NG drainage 400ml. Will do abdominal CT scan with oral contrast only. If CT scan is normal will resume feeding.
[2016-09-23] MEDS: LIDOCAINE VISCOUS 2% ORAL/TOP 20 ML UNIT-DOSE CUP MM PRN (22:06)
[2016-09-24] MEDS: morphine CARPU-JECT 4 MG/1 ML DISP.SYRIN IVPB PRN ×2 (00:52→23:31)
[2016-09-24] MEDS: HEPARIN NA (PORCINE) 5,000 UNITS/ML 1ML VIAL SQ SCH ×3 (06:29→22:22)
[2016-09-24 08:12] LABS: ALBUMIN 2.9 g/dl (3.4-5.0); ANION GAP 12 (8-16); BILIRUBIN,TOTAL 0.7 mg/dL (0.2-1.0); CALCIUM 7.7 mg/dL (8.5-10.1); CO2 21 mmol/L (21-32); CREATININE 0.5 mg/dL (0.55-1.02); GLUCOSE,RANDOM 59 mg/dL (74-106); SGOT/AST 33 U/L (15-37); SGPT/ALT 45 U/L (12-78); TOT PROT 5.9 g/dl (6.4-8.2)
[2016-09-24 08:13] LABS: ALK PHOS 100 U/L (45-117)
[2016-09-24 08:42] LABS: BASOPHIL 0.3 % (0-2.0); MCH 26.6 pg (25.7-33.7); MCHC 32.3 g/dl (32.0-36.0); MEAN CELL VOLUME 82.3 fl (80-96); MEAN PLT VOLUME 9.6 fl (7.5-11.1); NEUTROPHILS 69.9 % (42.8-82.8); PLATELET COUNT 209 K/MM3 (134-434); RDW 15.6 % (11.6-15.6); WHITE BLOOD COUNT 9.3 K/mm3 (4.0-10.0)
[2016-09-24] MEDS: SODIUM CHLORIDE 1,000 ML IV SCH (09:52)
[2016-09-24] MEDS: PANTOPRAZOLE SODIUM 100 ML IVPB SCH (09:52)
[2016-09-24] MEDS: KCL 10 MEQ IVPB 100 ML IVPB SCH ×2 (09:52→14:04)
[2016-09-24] MEDS: DEXTROSE 5%-0.45% SALINE 1,000 ML IV SCH (10:27)
--- NOTE | 2016-09-24 12:27 | PN ---
Progress Note, Physician - Current Medication List Current Medications: Active Medications Heparin Sodium (Porcine) (Heparin -) 5,000 unit SQ TID [facility] Last Admin: 09/24/16 06:29 Dose: 5,000 unit Pantoprazole Sodium (Protonix 40mg Ivpb (Pre-Docked)) 100 mls @ 200 mls/hr IVPB DAILY [facility] Last Admin: 09/24/16 09:52 Dose: 200 mls/hr Potassium Chloride (Potassium Chloride 10 Meq Premix Ivpb -) 100 mls @ 100 mls/ hr IVPB Q60M [facility] Stop: 09/24/16 12:59 Last Admin: 09/24/16 09:52 Dose: 100 mls/hr Dextrose/Sodium Chloride (D5-1/2ns -) 1,000 mls @ 83 mls/hr IV ASDIR [facility] Last Admin: 09/24/16 10:27 Dose: 83 mls/hr Lidocaine HCl (Xylocaine 2% Viscous Oral -) 15 ml MM Q6HPO PRN PRN Reason: PAIN Last Admin: 09/23/16 22:06 Dose: 15 ml Lorazepam (Ativan Injection -) 0.5 mg IVPUSH Q6H PRN PRN Reason: ANXIETY Last Admin: 09/21/16 18:55 Dose: 0.5 mg Morphine Sulfate (Morphine Injection -) 4 mg IVPB Q3H PRN PRN Reason: PAIN Last Admin: 09/24/16 00:52 Dose: 4 mg Ondansetron HCl (Zofran Injection) 4 mg IVPB Q6H PRN PRN Reason: NAUSEA Last Admin: 09/24/16 09:51 Dose: 4 mg - Objective Vital Signs: Vital Signs Temperature 99.3 F 09/24/16 06:00 Pulse Rate 65 09/24/16 06:00 Respiratory Rate 18 09/24/16 06:00 Blood Pressure 131/71 09/24/16 06:00 O2 Sat by Pulse Oximetry (%) 97 09/23/16 21:00 Labs: CBC, BMP 09/24/16 06:50 09/24/16 06:50 Problem List - Problems (1) Abdominal pain Code(s): R10.9 - UNSPECIFIED ABDOMINAL PAIN Qualifiers: Abdominal location: lower abdomen, unspecified Qualified Code(s): R10.30 - Lower abdominal pain, unspecified (2) Intestinal obstruction due to adhesions Code(s): K56.5 - INTESTINAL ADHESIONS W OBST (POSTPROCEDURAL) (POSTINFECTION) Assessment/Plan Surgery: Patient feels better , but still has occasional right lower quadrant abdominal pain. CT scan reviewed : no intestinal obstruction , contrast has progressed into the large intestine. There is a segment of distal small intestine , with thickened bowel wall, suggestive of inflammation. Will d/c Ng tube, resume liquids by mouth. Patient is explained the findings. If symptoms recur , will consider surgical intervention.
[2016-09-24] MEDS ORDERED: PT OWN MED DRAWER 7, Y5N ONE (13:05)
[2016-09-24] MEDS: LIDOCAINE VISCOUS 2% ORAL/TOP 20 ML UNIT-DOSE CUP MM PRN (13:08)
[2016-09-24] MEDS ORDERED: POTASSIUM CHLORIDE TABS 20 MEQ TABLET.ER (FP) PO ONE (13:14)
--- NOTE | 2016-09-24 13:57 | PN ---
Physical Exam: SUBJECTIVE: Patient seen and examined. Reports feeling much better. No further abdominal pain or nausea. Repeat CT scan done this am. OBJECTIVE: Vital Signs - 24 hr 3 09/23/16 09/24/16 09/24/16 21:00 02:00 06:00 Temperature 98.9 F 99.3 F Pulse Rate 66 65 Respiratory 18 18 18 Rate Blood Pressure 131/69 131/71 O2 Sat by Pulse 97 Oximetry (%) 3 09/24/16 09/24/16 09/24/16 09:00 10:00 14:00 Temperature 98.1 F 98.7 F Pulse Rate 75 64 Respiratory 18 18 Rate Blood Pressure 120/75 132/75 O2 Sat by Pulse 96 Oximetry (%) GENERAL: The patient is awake, alert, and fully oriented, in no acute distress. HEAD: Normal with no signs of trauma. EYES: PERRL, extraocular movements intact, sclera anicteric, conjunctiva clear. No ptosis. ENT: Ears normal, nares patent, oropharynx clear without exudates, moist mucous membranes. NECK: Trachea midline, full range of motion, supple. LUNGS: Breath sounds equal, clear to auscultation bilaterally, no wheezes, no crackles, no accessory muscle use. HEART: Regular rate and rhythm, S1, S2 without murmur, rub or gallop. ABDOMEN: Soft, nondistended, normoactive bowel sounds, no guarding, no rebound, no hepatosplenomegaly, no masses. + tenderness RLQ on deep palpation EXTREMITIES: 2+ pulses, warm, well-perfused, no edema. NEUROLOGICAL: Cranial nerves II through XII grossly intact. Normal speech, gait not observed. PSYCH: Normal mood, normal affect. SKIN: Warm, dry, normal turgor, no rashes or lesions noted Laboratory Results - last 24 hr 3 09/24/16 09/24/16 06:50 06:50 WBC 9.3 RBC 4.14 Hgb 11.0 Hct 34.1 MCV 82.3 MCHC 32.3 RDW 15.6 Plt Count 209 MPV 9.6 Neutrophils % 69.9 Lymphocytes % 20.9 Monocytes % 7.9 Eosinophils % 1.0 D Basophils % 0.3 Sodium 140 Potassium 3.3 L Chloride 107 Carbon Dioxide 21 Anion Gap 12 BUN 8 Creatinine 0.5 L Creat Clearance w eGFR > 60 Random Glucose 59 L D Calcium 7.7 L Total Bilirubin 0.7 AST 33 D ALT 45 D Alkaline Phosphatase 100 D Total Protein 5.9 L Albumin 2.9 L Active Medications 3 Generic Name Dose Route Start Last Admin Trade Name Freq PRN Reason Stop Dose Admin Heparin Sodium (Porcine) 5,000 unit 09/21/16 06:00 09/24/16 13:08 Heparin - SQ 5,000 unit TID MALCOLM Administration Pantoprazole Sodium 100 mls @ 200 mls/hr 09/21/16 10:00 09/24/16 09:52 Protonix 40mg Ivpb (Pre-Docked) IVPB 200 mls/hr DAILY [facility]COL[facility] Administration Dextrose/Sodium Chloride 1,000 mls @ 83 mls/hr 09/24/16 10:15 09/24/16 10:27 D5-1/2ns - IV 83 mls/hr ASDIR MALCOLM Administration Lidocaine HCl 15 ml 09/21/16 05:22 09/24/16 13:08 Xylocaine 2% Viscous Oral - MM 15 ml Q6HPO PRN Administration PAIN Lorazepam 0.5 mg 09/21/16 15:00 09/21/16 18:55 Ativan Injection - IVPUSH 0.5 mg Q6H PRN Administration ANXIETY Morphine Sulfate 4 mg 09/21/16 12:15 09/24/16 00:52 Morphine Injection - IVPB 4 mg Q3H PRN Administration PAIN Ondansetron HCl 4 mg 09/21/16 05:25 09/24/16 09:51 Zofran Injection IVPB 4 mg Q6H PRN Administration NAUSEA CT abd/pelvis: 09/24/16: Clinical history: Intestinal obstruction. Comparison: June 06, 2015. Contiguous transaxial images were obtained from the diaphragmatic domes and pubic symphysis after the administration of oral contrast. Lung bases: Bibasilar platelike atelectasis. Bone: Negative. Liver: Negative. Gallbladder: Negative. Biliary tree: Negative. Spleen: Negative. Pancreas: Negative. Adrenals : Negative. Kidneys: Negative. Pelvis: There is a small right adnexal cyst. Bowel: There are several loops of thick walled small bowel in the right lower quadrant. There are mild surrounding inflammatory changes. No free air or abscess is seen. The findings are most suggestive of ileitis, either inflammatory or infectious. There is no evidence of small bowel or large obstruction. Contrast is seen in the ascending colon. The appendix is unremarkable. Other: There is an NG tube with it's tip in the distal stomach. Impression: Abnormal loops of small bowel in the right lower quadrant with moderate wall thickening and some adjacent infiltration of the fat. No free air or abscess seen. Findings are most consistent with ileitis, either infectious or inflammatory. I do not see a danii obstruction at this time and contrast is seen in the ascending colon. Other findings as above. ASSESSMENT/PLAN: SBO - NGT dc as per surgery, clear liquid diet ordered - dw surgery, will not advance diet even if tolerated until xray in am, same ordered by surgery - If symptoms recur , will consider surgical intervention as per surgical note - pt and sister explained as long as diet tolerated and repeat xray ok, no surgery needed, but if pain or vomiting recurs, may need surgery hypoglycemia - noted on labs this am, asymptomatic - IVF changed to D5 1/2 NS. cont to monitor hypokalemia - repleted, repeat in AM DVT PPX - heparin 5000u SC TID GI PPX - protonix IVPB FEN - cont IVF - BMP in am - clear liquid diet Dispo: Pt currently requires inpatient management of her emergent condition. Visit type - Emergency Visit Emergency Visit: Yes ED Registration Date: 09/21/16 Care time: The patient presented to the Emergency Department on the above date and was hospitalized for further evaluation of their emergent condition. - New Patient This patient is new to me today: No - Critical Care Critical Care patient: No
[2016-09-24 17:09] LABS: CALCIUM 7.9 mg/dL (8.5-10.1); CREATININE 0.5 mg/dL (0.55-1.02); MAGNESIUM 1.9 mg/dL (1.8-2.4)
[2016-09-25] MEDS: DEXTROSE 5%-0.45% SALINE 1,000 ML IV SCH ×2 (05:00→11:52)
[2016-09-25] MEDS: HEPARIN NA (PORCINE) 5,000 UNITS/ML 1ML VIAL SQ SCH ×2 (06:23→14:11)
[2016-09-25] MEDS: PANTOPRAZOLE SODIUM 100 ML IVPB SCH (09:33)
--- NOTE | 2016-09-25 10:30 | PN ---
Progress Note, Physician - Current Medication List Current Medications: Active Medications Heparin Sodium (Porcine) (Heparin -) 5,000 unit SQ TID [facility] Last Admin: 09/25/16 06:23 Dose: 5,000 unit Pantoprazole Sodium (Protonix 40mg Ivpb (Pre-Docked)) 100 mls @ 200 mls/hr IVPB DAILY [facility] Last Admin: 09/25/16 09:33 Dose: 200 mls/hr Dextrose/Sodium Chloride (D5-1/2ns -) 1,000 mls @ 83 mls/hr IV ASDIR [facility] Last Admin: 09/25/16 05:00 Dose: 83 mls/hr Lidocaine HCl (Xylocaine 2% Viscous Oral -) 15 ml MM Q6HPO PRN PRN Reason: PAIN Last Admin: 09/24/16 13:08 Dose: 15 ml Lorazepam (Ativan Injection -) 0.5 mg IVPUSH Q6H PRN PRN Reason: ANXIETY Last Admin: 09/21/16 18:55 Dose: 0.5 mg Morphine Sulfate (Morphine Injection -) 4 mg IVPB Q3H PRN PRN Reason: PAIN Last Admin: 09/24/16 23:31 Dose: 4 mg Ondansetron HCl (Zofran Injection) 4 mg IVPB Q6H PRN PRN Reason: NAUSEA Last Admin: 09/24/16 09:51 Dose: 4 mg - Objective Vital Signs: Vital Signs Temperature 98.4 F 09/25/16 06:00 Pulse Rate 53 L 09/25/16 06:00 Respiratory Rate 18 09/25/16 06:00 Blood Pressure 118/81 09/25/16 06:00 O2 Sat by Pulse Oximetry (%) 99 09/24/16 22:00 Labs: CBC, BMP 09/24/16 06:50 09/24/16 15:20 Problem List - Problems (1) Abdominal pain Code(s): R10.9 - UNSPECIFIED ABDOMINAL PAIN Qualifiers: Abdominal location: lower abdomen, unspecified Qualified Code(s): R10.30 - Lower abdominal pain, unspecified (2) Intestinal obstruction due to adhesions Code(s): K56.5 - INTESTINAL ADHESIONS W OBST (POSTPROCEDURAL) (POSTINFECTION) Assessment/Plan Surgery: Patient has no abdominal pain , she has tolerated liquids. Having bowel movemnts. abdomen is soft and not tender. Ct scan suggests an inflammatory process of the distal small intestine, no intestinal obstruction. Suggest : g.I. consult before discharge , and g.i. follow up for inflammatory bowel disease . I have explained this to the hospitalist service. Resume diet, discharge planning.
[2016-09-25 15:42] VITALS: BP 122/72; PULSE 60; TEMP 98.9
--- NOTE | 2016-09-25 16:00 | CON.GI ---
Consult Consult Specialty:: GI Referred by:: Hospitalist Service Reason for Consultation:: GI evaluation - History of Present Illness Chief Complaint: [employer] commercial lines insurance agent [phone] utililized as the patient speaks primarily Burmese: "i was vomiting at home and had abdominal pain" History of Present Illness: 41F admitted to [facility] for evaluation of lower abdominal pain and vomiting. She had been seen the day before in the ER and sicharged home. in the ER 09/21 she was noted to have a WBC of 10.[address] scan of the abdomen and pelvis performed without contrast revealed findings consistent with a partial high grade small bowel obstruction at the level of a surgical anastamosis. She was treated with NGT decompression and was seen by Dr. Rosenthal who advised a Gi consult prior to discharge. In review of the [facility], on 01/28/15 Dr. Rosenthal had performed repair of a small bowel perforation, enterectomy with end to end ansatamosis, extensive lysis of adhesions. This occurred during a . She denies similar episodes in the past, chronic diarrhea or recent changes in bowel habits. There is no family history or crohn's disease or ulcerative colitis. She currently feels well and is tolerating her diet. Repeat CT scan revealed thickened small bowel loops at the level of the previously described obstruction. - History Source History Provided By: Patient, Medical Record Limitations to Obtaining History: No Limitations - Past Medical History ...LMP: 08/23/16 - Past Surgical History Past Surgical History: Yes: (Small bowel resection secondary to bowel perforation that occurred during her . 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 (year[place] 1996 History of Recent Travel: No Home Medications - Allergies Allergies/Adverse Reactions: Allergies Allergy/AdvReac Type Severity Reaction Status Date / Time No Known Allergies Allergy Verified 09/21/16 01:46 - Home Medications Home Medications: Ambulatory Orders NK [No Known Home Medication] 09/21/16 Family Disease History - Family Disease History Family Disease History: Heart Disease: Father (Alive77: hyperlipidemia, HTN), Other: Father, Mother (Alive: 67: hyperlipidemia, HTN), Brother (3 brothers: all w/ GB issues), Son (1 son, healthy) Other Family History: No family history of colorectal cancer or other GI malignancy Review of Systems - Review of Systems Constitutional: denies: Fever Cardiovascular: denies: Chest Pain Respiratory: denies: SOB Gastrointestinal: reports: Abdominal Pain, Nausea, Vomiting. denies: Melena, Rectal Bleeding, Vomiting Blood Physical Exam-GI Vital Signs: Vital Signs Temperature 98.9 F 09/25/16 15:41 Pulse Rate 60 09/25/16 15:41 Respiratory Rate 18 09/25/16 15:41 Blood Pressure 122/72 09/25/16 15:41 O2 Sat by Pulse Oximetry (%) 99 09/24/16 22:00 Constitutional: Yes: Calm Eyes: No: Sclera Icterus Cardiovascular: Yes: Regular Rate and Rhythm Respiratory: Yes: CTA Bilaterally Gastrointestinal Inspection: Yes: Scars (Long horizontal abdominoplasty scar, + pelvic surgical scar) ...Auscultate: Yes: Normoactive Bowel Sounds ...Palpate: No: Hepatomegaly, Splenomegaly, Tenderness ...Percussion: No: Tympanitic Edema: No Neurological: Yes: Alert, Oriented Labs: CBC, BMP 09/24/16 06:50 09/24/16 15:20 Hepatic Panel Total Bilirubin 0.7 mg/dL (0.2-1.0) 09/24/16 06:50 AST 33 U/L (15-37) D 09/24/16 06:50 ALT 45 U/L (12-78) D 09/24/16 06:50 Alkaline Phosphatase 100 U/L (45-117) D 09/24/16 06:50 Albumin 2.9 g/dl (3.4-5.0) L 09/24/16 06:50 Imaging - Results Cat Scan: Report Reviewed, Image Reviewed Problem List - Problems (1) SBO (small bowel obstruction) Assessment/Plan: Given previous lack of symptomatology and acute onset of her current symptoms along with previous surgical history, I suspect that her bowel obstruction was likely secondary to adhesions as opposed to inflammatory bowel disease, with the thickened bowel loops likely reflecting where the obstruction was alleviated. There was no gross description of changes consistent with IBD during her surgery in 2015 as well. She did express wishes to discuss things with Dr. Rosenthal regarding her current clinical condition and previous surgery. I passed the message along to ALEXA Gunn her hospitalist, Advise: Low fiber/residue diet Follow-up with surgeon as outpatient Can follow-up with me as an outpatient as well upon discharge. Information provided in her discharge paperwork Code(s): K56.69 - OTHER INTESTINAL OBSTRUCTION
--- NOTE | 2016-09-25 16:48 | DS ---
Physical Exam: SUBJECTIVE: Patient seen and examined She is tolerated PO diet, no vomiting, nausea, no pain. OBJECTIVE: Vital Signs Period Temp Pulse Resp BP Sys/Gomez Pulse Ox Last 24 Hr 97.7 F-98.9 F 52-65 18-18 113-144/60-81 99 PHYSICAL EXAM Neuro: alert, awake, cn 2-12intact Pulm: CTAB CV: s1 s2 rrr no mrg Abd: Transverse abd incisions- healed, soft non tender, non distended + bs Ext: warm, no le edema Laboratory Results - last 24 hr 09/24/16 15:20 Sodium 138 Potassium 3.8 Chloride 105 Carbon Dioxide 19 L Anion Gap 14 BUN 8 Creatinine 0.5 L Random Glucose 74 D Calcium 7.9 L Magnesium 1.9 HOSPITAL COURSE: Date of Admission:09/21/16 Date of Discharge: 09/25/16 Minutes to complete discharge: 35 Discharge Summary Reason For Visit: SMALL BOWEL OBSTRUCTION Current Active Problems DVT prophylaxis (Acute) Intestinal obstruction due to adhesions (Acute) SBO (small bowel obstruction) (Acute) Hospital Course: Initial Hospital Course: Briefly, this 41 year old female with no significant PMH presented to the ED with nausea, vomiting (x5 times), and abdominal pain, specifically the umbilical region. Pt. stated her symptoms began two days prior to admission.She points to her umbilicus when asked where the pain is. Nothing makes her pain better or worse. Subsequent Hospital Course/Progress Note/Discharge Summary by: 1. SBO - Resolved - Decompressed by NGT - Tolerating PO diet - Per GI eval, thickened small bowel loops likely at level of, now, resolved obstruction, not due to IBS or chrons 2. s/p repair small bowel obstruction 01/28/15 - During this procedure entrectomy with end to end anastamosis with extensive lysis of adhesions preformed intraopratively during c section - previous abdominoplasty and laparotomy of ovarian tumor about 10-15 years ago Dispo: - Home with surgery and GI follow up Condition: Stable - Instructions Diet, Activity, Other Instructions: Please return to the ED for any new, persistent, or worsening symptoms. Follow up with your PCP in 1 week Follow up with Dr. Rosenthal as outpt Follow up with GI specialist as outpt referral information enclosed Low fiber diet Referrals: Adrien Astudillo MD [Staff Physician] - Franklin Milan DO [Staff Physician] - Zenobia Rosenthal MD [Staff Physician] - Disposition: HOME - Home Medications Comprehensive Discharge Medication List: Ambulatory Orders NK [No Known Home Medication] 09/21/16 This patient is new to me today: Yes Date on this admission: 09/25/16 Emergency Visit: Yes ED Registration Date: 09/21/16 Care time: The patient presented to the Emergency Department on the above date and was hospitalized for further evaluation of their emergent condition. Critical Care patient: No - Discharge Referral Referred to [facility] Med P.C[facility] No
== END 2016-09-25 18:29 | disposition home or self-care (01) | DRG 247 ==
LOC: JER 01:36 → JERBED 04:27 → UNDOADMIN 04:38 → JERBED 04:38 → J5S 06:57
PROVIDERS: ADMIT Internal Medicine; ATTEND Nurse Practitioner Acute Care
PROC: 0D9670Z Drainage of Stomach with Drainage Device, Via Natural or Artificial Opening (ICD-10-PCS; principal; 2016-09-21)
DX: K56.5 Intestinal adhesions [bands] with obstruction (postinfection) (principal); E87.6 Hypokalemia; E16.2 Hypoglycemia, unspecified; D72.829 Elevated white blood cell count, unspecified
CPT/HCPCS: 36415; 71010-TC; 74020-TC; 74176-TC; 80048; 80053; 82150; 83690; 83735; 84100; 85025; 85027; 99284-25; J1644

== ENCOUNTER → 2019-07-29 | Day surgery (SDC) | payer OTHER | END | disposition home or self-care (01) | LOC: JRADIR 09:40 | PROVIDERS: ATTEND Obstetrics & Gynecology | PROC: BU18YZZ Fluoroscopy of Uterus and Fallopian Tubes using Other Contrast (ICD-10-PCS; principal; 2019-07-29) | DX: N97.9 Female infertility, unspecified (principal) | CPT/HCPCS: 58340; 74740-TC-FY; 76000-TC-FY; 84703 ==

== ENCOUNTER 2021-06-13 02:07 | Emergency (ER) | payer OTHER ==
[2021-06-13 02:39] VITALS: BMI 29.2
[2021-06-13] MEDS ORDERED: morphine CARPU-JECT 2 MG/1 ML DISP.SYRIN IVPUSH ONE (02:57)
[2021-06-13] MEDS ORDERED: morphine SULFATE 4 MG/ML VIAL ONE (03:05)
[2021-06-13 04:26] LABS: BASO % 0.4 % (0-2.0); EOS % 0.8 % (0-4.5); HEMATOCRIT 35.3 % (32.4-45.2); HEMOGLOBIN 11.6 GM/dL (10.7-15.3); LYMPH % 24.6 % (8-40); MCH 26.5 pg (25.7-33.7); MCHC 32.9 g/dl (32.0-36.0); MEAN CELL VOLUME 80.5 fl (80-96); MEAN PLT VOLUME 9.9 fl (7.5-11.1); MONO % 6.7 % (3.8-10.2); NEUT % 67.5 % (42.8-82.8); PLATELET COUNT 259 10^3/uL (134-434); RBC 4.38 M/mm3 (3.60-5.2); RDW 15.5 % (11.6-15.6)
[2021-06-13 04:32] LABS: INR 0.92 (0.83-1.09); PROTHROMBIN TIME (PATIENT) 10.8 SEC (9.7-13.0)
[2021-06-13 04:35] LABS: ACTIVATED PTT 27.9 SECONDS (25.2-36.5)
[2021-06-13 04:41] LABS: CALCIUM 8.8 mg/dL (8.5-10.1)
[2021-06-13 04:42] LABS: ALBUMIN 3.6 g/dl (3.4-5.0); BLOOD UREA NITROGEN 13.9 mg/dL (7-18); MAGNESIUM 2.2 mg/dL (1.8-2.4)
[2021-06-13 04:45] LABS: CREATININE 0.7 mg/dL (0.55-1.3)
[2021-06-13 04:46] LABS: BILIRUBIN,TOTAL 0.2 mg/dL (0.2-1); TOT PROT 7.5 g/dl (6.4-8.2)
[2021-06-13] MEDS ORDERED: HYDROmorphone HCL CARPU-JECT 2 MG/1 ML DISP.SYRIN IVPUSH ONE (05:15)
[2021-06-13] MEDS ORDERED: HYDROmorphone HCl 2 MG/ML VIAL ONE (05:21)
[2021-06-13] MEDS ORDERED: SODIUM CHLORIDE 0.9% 500 ML INFUS.BAG IV ONE (08:06)
[2021-06-13 09:04] LABS: URINE APPEARANCE CLEAR; URINE BILIRUBIN NEGATIVE (NEGATIVE); URINE COLOR YELLOW; URINE GLUCOSE (UA) NEGATIVE (NEGATIVE); URINE KETONE NEGATIVE (NEGATIVE); URINE LEUK ESTERASE NEGATIVE (NEGATIVE); URINE NITRITE NEGATIVE (NEGATIVE); URINE PROTEIN NEGATIVE (NEGATIVE); URINE UROBILINOGEN 0.2 mg/dL (0.2-1.0)
[2021-06-13 09:07] LABS: HCG,QUALITATIVE URINE Negative
[2021-06-13 09:08] VITALS: BP 108/62; PULSE 55; TEMP 98.5
== END 2021-06-13 09:37 | disposition home or self-care (01) ==
LOC: JER 02:07
PROC: 3E033GC Introduction of Other Therapeutic Substance into Peripheral Vein, Percutaneous Approach (ICD-10-PCS; principal; 2021-06-13)
PROC: 3E033NZ Introduction of Analgesics, Hypnotics, Sedatives into Peripheral Vein, Percutaneous Approach (ICD-10-PCS; 2021-06-13)
DX: R10.30 Lower abdominal pain, unspecified (principal)
CPT/HCPCS: 36415; 74177-TC; 80053; 81003; 83605; 83735; 84703; 85025; 85610; 85730; 87086; 93005; 93010; 99285-25; C9803; U0003; U0005

== ENCOUNTER 2022-11-09 03:41 | Inpatient (IN) | payer OTHER ==
[2022-11-09 03:54] VITALS: BMI 32.0
[2022-11-09] MEDS ORDERED: LACTATED RINGERS SOLUTION 1000 ML INFUS.BAG IV ONE ×2 (04:04→08:29)
[2022-11-09] MEDS ORDERED: morphine CARPU-JECT 4 MG/1 ML DISP.SYRIN IVPUSH ONE ×2 (04:04→08:28)
[2022-11-09] MEDS ORDERED: morphine SULFATE 4 MG/ML VIAL ONE ×2 (04:06→08:41)
[2022-11-09 04:19] LABS: BASO % 0.3 % (0-2.0); EOS % 0.2 % (0-4.5); HEMATOCRIT 37.4 % (32.4-45.2); HEMOGLOBIN 12.6 GM/dL (10.7-15.3); LYMPH % 13.8 % (8-40); MCH 27.7 pg (25.7-33.7); MCHC 33.7 g/dl (32.0-36.0); MEAN CELL VOLUME 82.4 fl (80-96); MEAN PLT VOLUME 9.7 fl (7.5-11.1); MONO % 3.2 % (3.8-10.2); NEUT % 82.5 % (42.8-82.8); PLATELET COUNT 232 10^3/uL (134-434); RBC 4.54 M/mm3 (3.60-5.2); WHITE BLOOD COUNT 9.4 K/mm3 (4.0-10.0)
[2022-11-09 04:32] LABS: POTASSIUM 3.9 mmol/L (3.5-5.1)
[2022-11-09 04:34] LABS: CALCIUM 9.1 mg/dL (8.5-10.1)
[2022-11-09 04:35] LABS: ALBUMIN 3.8 g/dl (3.4-5.0); BLOOD UREA NITROGEN 12.1 mg/dL (7-18); MAGNESIUM 2.1 mg/dL (1.8-2.4)
[2022-11-09 04:38] LABS: CREATININE 0.7 mg/dL (0.55-1.3); PHOSPHOROUS 2.8 mg/dL (2.5-4.9)
[2022-11-09 04:39] LABS: BILIRUBIN,TOTAL 0.4 mg/dL (0.2-1); TOT PROT 7.7 g/dl (6.4-8.2)
[2022-11-09] MEDS ORDERED: ONDANSETRON 4 MG/2 ML VIAL IVPUSH ONE (08:44)
[2022-11-09] MEDS ORDERED: ONDANSETRON 4 MG/2 ML VIAL ONE (08:51)
[2022-11-09 09:09] LABS: PH,URINE 7.5 (5.0-8.0); URINE APPEARANCE CLEAR; URINE BILIRUBIN NEGATIVE (NEGATIVE); URINE COLOR YELLOW; URINE GLUCOSE (UA) NEGATIVE (NEGATIVE); URINE KETONE NEGATIVE (NEGATIVE); URINE LEUK ESTERASE NEGATIVE (NEGATIVE); URINE NITRITE NEGATIVE (NEGATIVE); URINE PROTEIN NEGATIVE (NEGATIVE); URINE UROBILINOGEN 0.2 mg/dL (0.2-1.0)
[2022-11-09] MEDS ORDERED: ONDANSETRON 4 MG/2 ML VIAL IVPUSH PRN (10:40)
[2022-11-09] MEDS: ACETAMINOPHEN 1000 MG/100 ML BAG IVPB PRN ×2 (13:58→21:58)
[2022-11-09] MEDS: DEXTROSE 5%-LACTATED RINGERS 1,000 ML IV SCH ×2 (13:59→21:58)
[2022-11-09] MEDS: morphine SULFATE 4 MG/ML VIAL IVPUSH PRN (18:54)
[2022-11-10] MEDS: morphine SULFATE 4 MG/ML VIAL IVPUSH PRN ×3 (02:46→16:27)
[2022-11-10] MEDS: DEXTROSE 5%-LACTATED RINGERS 1,000 ML IV SCH ×3 (06:41→16:31)
[2022-11-10 08:27] LABS: BASO % 0.4 % (0-2.0); EOS % 0.4 % (0-4.5); HEMATOCRIT 35.1 % (32.4-45.2); HEMOGLOBIN 12.1 GM/dL (10.7-15.3); LYMPH % 21.9 % (8-40); MCH 28.3 pg (25.7-33.7); MCHC 34.5 g/dl (32.0-36.0); MEAN CELL VOLUME 82.1 fl (80-96); MEAN PLT VOLUME 10.2 fl (7.5-11.1); MONO % 6.2 % (3.8-10.2); NEUT % 71.1 % (42.8-82.8); PLATELET COUNT 193 10^3/uL (134-434); RBC 4.27 M/mm3 (3.60-5.2); RDW 13.6 % (11.6-15.6); WHITE BLOOD COUNT 8.4 K/mm3 (4.0-10.0)
[2022-11-10 08:40] LABS: POTASSIUM 3.6 mmol/L (3.5-5.1)
[2022-11-10 08:45] LABS: ALBUMIN 3.1 g/dl (3.4-5.0); CALCIUM 8.7 mg/dL (8.5-10.1)
[2022-11-10 08:46] LABS: BLOOD UREA NITROGEN 5.6 mg/dL (7-18); MAGNESIUM 1.8 mg/dL (1.8-2.4)
[2022-11-10 08:48] LABS: CREATININE 0.6 mg/dL (0.55-1.3)
[2022-11-10 08:49] LABS: PHOSPHOROUS 3.3 mg/dL (2.5-4.9)
[2022-11-10 08:50] LABS: TOT PROT 6.4 g/dl (6.4-8.2)
[2022-11-10 08:52] LABS: BILIRUBIN,TOTAL 0.6 mg/dL (0.2-1)
[2022-11-10] MEDS: ACETAMINOPHEN 1000 MG/100 ML BAG IVPB PRN (09:01)
[2022-11-11] MEDS: DEXTROSE 5%-LACTATED RINGERS 1,000 ML IV SCH (05:31)
[2022-11-11 08:34] VITALS: RESP 18
[2022-11-11 08:47] LABS: HEMATOCRIT 35.3 % (32.4-45.2); HEMOGLOBIN 12.3 GM/dL (10.7-15.3); MCH 28.5 pg (25.7-33.7); MCHC 34.7 g/dl (32.0-36.0); MEAN CELL VOLUME 82.1 fl (80-96); MEAN PLT VOLUME 10.2 fl (7.5-11.1); PLATELET COUNT 193 10^3/uL (134-434); RDW 13.6 % (11.6-15.6)
[2022-11-11 09:16] LABS: POTASSIUM 3.2 mmol/L (3.5-5.1)
[2022-11-11 09:17] LABS: CALCIUM 8.5 mg/dL (8.5-10.1); MAGNESIUM 1.8 mg/dL (1.8-2.4)
[2022-11-11 09:21] LABS: CREATININE 0.6 mg/dL (0.55-1.3); PHOSPHOROUS 2.5 mg/dL (2.5-4.9)
[2022-11-11] MEDS: POTASSIUM CHLORIDE TABS 20 MEQ TABLET.ER (FP) PO SCH (11:28)
[2022-11-12 07:52] LABS: POTASSIUM 3.8 mmol/L (3.5-5.1)
[2022-11-12 07:54] LABS: CALCIUM 8.3 mg/dL (8.5-10.1)
[2022-11-12 07:55] LABS: BLOOD UREA NITROGEN 10.1 mg/dL (7-18)
[2022-11-12 07:58] LABS: CREATININE 0.7 mg/dL (0.55-1.3); PHOSPHOROUS 3.4 mg/dL (2.5-4.9)
[2022-11-12 08:10] LABS: HEMATOCRIT 34.6 % (32.4-45.2); HEMOGLOBIN 11.9 GM/dL (10.7-15.3); MCH 28.2 pg (25.7-33.7); MCHC 34.3 g/dl (32.0-36.0); MEAN CELL VOLUME 82.3 fl (80-96); MEAN PLT VOLUME 10.1 fl (7.5-11.1); PLATELET COUNT 187 10^3/uL (134-434); RDW 13.7 % (11.6-15.6); WHITE BLOOD COUNT 6.3 K/mm3 (4.0-10.0)
[2022-11-12] MEDS: POTASSIUM CHLORIDE TABS 20 MEQ TABLET.ER (FP) PO SCH (09:09)
[2022-11-12] MEDS ORDERED: POLYETHYLENE GLYCOL (HEALTHYLAX) 3350 17 GM PACKET PO SCH (10:45)
[2022-11-12 14:06] VITALS: BP 128/67; PULSE 72; TEMP 98.1
== END 2022-11-12 14:05 | disposition home or self-care (01) | DRG 247 ==
LOC: JER 03:41 → JERBED 08:59 → J6S 13:20
PROVIDERS: ADMIT Internal Medicine; ATTEND Internal Medicine
PROC: 0D9670Z Drainage of Stomach with Drainage Device, Via Natural or Artificial Opening (ICD-10-PCS; principal; 2022-11-09)
DX: K56.600 Partial intestinal obstruction, unspecified as to cause (principal); E87.6 Hypokalemia
CPT/HCPCS: 0241U-QW; 36415; 74019-TC-FY; 74177-TC; 80048; 80053; 81003; 83605; 83690; 83735; 84100; 84484; 85025; 85027; 87086; 93005; 93010; 99285-25; Q9967

== ENCOUNTER 2022-11-14 16:00 | Inpatient (IN) | payer OTHER ==
[2022-11-14] MEDS ORDERED: SODIUM CHLORIDE 0.9% 1000 ML INFUS.BAG IV ONE ×2 (16:27→19:04)
[2022-11-14] MEDS ORDERED: ONDANSETRON 4 MG/2 ML VIAL IVPUSH ONE (16:27)
[2022-11-14] MEDS ORDERED: ONDANSETRON 4 MG/2 ML VIAL ONE (17:03)
[2022-11-14 17:16] LABS: HEMATOCRIT 41.1 % (32.4-45.2); HEMOGLOBIN 13.8 G/dL (10.7-15.3); MCHC 33.6 g/dl (32.0-36.0); MEAN CELL VOLUME 86.4 fl (80-96); MEAN PLT VOLUME 10.1 fl (7.5-11.1); PLATELET COUNT 226.5 10^3/uL (134-434); RBC 4.76 10^6/uL (3.60-5.2); RDW 15.1 % (11.6-15.6); WHITE BLOOD COUNT 7.4 10^3/uL (4.0-10.8)
[2022-11-14 17:20] LABS: ALBUMIN 4.1 g/dl (3.4-5.0); BILIRUBIN,TOTAL 0.7 mg/dl (0.2-1); CALCIUM 9.1 mg/dl (8.5-10); CREATININE 0.7 mg/dl (0.55-1.3); POTASSIUM 3.7 mmol/L (3.5-5.1); TOT PROT 7.8 g/dl (6.4-8.2)
[2022-11-14 17:40] LABS: PLATELET ESTIMATE ADEQUATE
[2022-11-14 18:58] LABS: EPITHELIAL CELLS FEW /hpf
[2022-11-14] MEDS ORDERED: morphine CARPU-JECT 2 MG/1 ML DISP.SYRIN IVPUSH ONE (20:55)
[2022-11-14] MEDS ORDERED: morphine SULFATE 4 MG/ML VIAL ONE (21:01)
[2022-11-14] MEDS: LACTATED RINGERS SOLUTION 1,000 ML IV SCH (21:10)
[2022-11-14] MEDS ORDERED: ACETAMINOPHEN 500 MG TABLET (FP) PO ONE (21:21)
[2022-11-14] MEDS ORDERED: FAMOTIDINE 10 MG TABLET PO ONE (21:21)
[2022-11-14 22:30] VITALS: BMI 32.0
[2022-11-15 08:41] LABS: BILIRUBIN,TOTAL 0.7 mg/dl (0.2-1); CALCIUM 8.1 mg/dl (8.5-10); CREATININE 0.7 mg/dl (0.55-1.3); MAGNESIUM 1.8 mg/dL (1.8-2.4); POTASSIUM 3.6 mmol/L (3.5-5.1); TOT PROT 5.7 g/dl (6.4-8.2)
[2022-11-15] MEDS: LACTATED RINGERS SOLUTION 1,000 ML IV SCH ×2 (15:15→20:00)
[2022-11-16 01:25] VITALS: RESP 18; TEMP 98.2
[2022-11-16 06:02] VITALS: PULSE 62
[2022-11-16 09:12] VITALS: BP 133/70
== END 2022-11-16 14:15 | disposition home or self-care (01) | DRG 247 ==
LOC: FER 16:00 → FM/S 20:04
PROVIDERS: ADMIT Internal Medicine
DX: K56.699 Other intestinal obstruction unspecified as to partial versus complete obstruction (principal); R10.30 Lower abdominal pain, unspecified
CPT/HCPCS: 0241U-QW; 36415; 74019-TC-FY; 74177-TC; 74250-TC-FY; 80048; 80053; 81003; 81015; 81025; 83605; 83735; 85027; 86850; 86900; 86901; 99285-25; Q9967